=== PATIENT | male | born 1990 | race African-American/Black ===

== ENCOUNTER 2018-02-13 14:39 | Emergency (ER) | payer SELFPAY ==
[~2018-02-13] VITALS: Ht 190.5 cm; Wt 68.0 kg
[2018-02-13 14:51] VITALS: BP 120/74
[2018-02-13] MEDS ORDERED: Neosporin Oint Ud Pkt TOP ONE (15:15)
[2018-02-13] MEDS ORDERED: Tetanus/Diptheria/Pertussis Vaccine 0.5ml Syr IM ONE (15:15)
[2018-02-13 16:37] VITALS: BP 127/72
[2018-02-13] MEDS ORDERED: KEFLEX500 MG ORAL (16:38)
[2018-02-13] MEDS ORDERED: IBUPROFEN600 MG ORAL (16:38)
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
== END 2018-02-13 16:45 | disposition home or self-care (01) ==
LOC: EMR 15:35
DX: S80.212A Abrasion, left knee, initial encounter (principal); S00.83XA Contusion of other part of head, initial encounter; H11.33 Conjunctival hemorrhage, bilateral; Y04.2XXA Assault by strike against or bumped into by another person, initial encounter; Y92.9 Unspecified place or not applicable; Z23 Encounter for immunization
CPT/HCPCS: 70450; 70486; 90471; 90715; 99284